=== PATIENT | male | born 1995 | race African-American/Black ===

== ENCOUNTER → 2024-07-09 07:55 | Outpatient (CLI) | payer OTHER, SELFPAY ==
--- NOTE | 2024-07-09 08:40 | DI.MRI.S_ITS ---
PROCEDURE: MR ORBITS FACE NECK WO/W CON INDICATIONS: NECK MASS TECHNIQUE: Sagittal/axial/coronal T1 spin echo and STIR. After the administration of contrast, axial/coronal/sagittal T1 fast spin echo with fat saturation through the neck. COMPARISON: None. FINDINGS: Image quality: Excellent. Lymph nodes: No enlarged nodes are seen throughout the neck. Vessels: Visualized vasculature appears normal, with normal flow voids and enhancement. Neck spaces: Deep to the marker within the left upper neck, there is a heterogeneous T2 hyperintense and mildly enhancing lesion measuring approximately 3.0 x 2.2 x 2.8 cm (TV by AP by cc). Lesion is just at the inferior aspect of the parotid gland. The oropharynx, nasopharynx and pharynx are unremarkable, without mucosal lesions seen. Vocal cords, false vocal cords, pyriform sinuses, epiglottis, vallecula, and tongue base all appear normal. Glands: The parotid and submandibular glands appear normal. Thyroid gland demonstrates no significant abnormality. Miscellaneous: Visualized brain and orbits appear normal. Superficial soft tissues appear normal. Mild diffuse paranasal sinus mucosal thickening with near complete opacification of the left sphenoid sinus.. Bones: Marrow has normal overall signal. IMPRESSION: Deep to the marker is a heterogeneous T2 hyperintense and mildly enhancing lesion measuring up to 3 cm, adjacent versus arising from the inferior aspect of the parotid gland. Differential includes etiology such as primary parotid neoplasm if this arises from the parotid gland versus a vascular malformation. Other benign and malignant etiologies are also in the differential. Consider ultrasound for further evaluation to look for vascularity versus a target for tissue sampling. If no intervention is performed, recommend follow-up imaging to assess stability. Dictated by: Jefferson Harris M.D. on 07/09/2024 at 11:07 Approved by: Jefferson Harris M.D. on 07/09/2024 at 11:37
== END ==
PROVIDERS: Referring Provider Otolaryngology; Visit Provider Otolaryngology
DX: R22.1 Localized swelling, mass and lump, neck (principal)
CPT/HCPCS: 70543; A9579